=== PATIENT | male | born 1960 | race Asian ===

== ENCOUNTER 2024-01-22 16:45 | Emergency (ER) | payer SELFPAY ==
[~2024-01-22] VITALS: Ht 177.8 cm; Wt 74.4 kg
[2024-01-22 17:00] VITALS: TEMP 98.6
[2024-01-22 17:32] VITALS: BP 119/72; O2SAT 98
== END 2024-01-22 17:33 | disposition home or self-care (01) ==
LOC: ER 17:00
DX: R53.1 Weakness (principal); E11.9 Type 2 diabetes mellitus without complications; Z59.00 Homelessness unspecified